=== PATIENT | female | born 2000 | race Caucasian/White ===

== ENCOUNTER 2020-11-24 10:35 | Outpatient (CLI) | payer SELFPAY ==
[2020-11-24 11:08] VITALS: BMI 32.8
[2020-11-24 11:10] VITALS: TEMP 36.8
[2020-11-24 11:14] VITALS: BP 141/98; PULSE 123
[2020-11-24 11:28] VITALS: BP 131/81; PULSE 146
[2020-11-24 11:41] LABS: Hematocrit 35.2 % (37-47); Hemoglobin 11.9 g/dL (12.0-15.0); Mean Corp Hgb Conc 33.8 g/dL (32-36); Mean Corpuscular Hgb 29.9 pg (27.0-32.0); Mean Corpuscular Volume 88.4 fL (81-99); Mean Platelet Vol. 10.6 fl (6.2-12.0); Platelet Count 262 K/mm3 (150-450); RBC Distribution Width SD 38.6 fl (35.1-43.9); Red Blood Count 3.98 M/mm3 (4.2-5.4); White Blood Count 9.7 K/mm3 (4.4-11.0)
[2020-11-24 11:43] VITALS: BP 136/90
[2020-11-24 11:56] LABS: AST(SGOT) 9 U/L (15-37); Alanine Aminotransfer ALT/SGPT 25 U/L (13-56); Creatinine, Serum 0.66 mg/dL (0.55-1.02); EST Glomerular Filtration Rate 119 mL/min (>60); Est Glom Filt Rate - Afr Amer 145 mL/min (>60); Estimated Creatinine Clearance 106.64 ml/min; Uric Acid 2.9 mg/dL (2.6-6.0)
[2020-11-24 11:58] VITALS: BP 131/89; PULSE 117
[2020-11-24 12:00] LABS: Protein:Creat Ratio 160 mg/g CRE (0-200)
--- NOTE | 2020-11-26 08:24 | OB.TRI.PN ---
Progress Notes Date of Service: 11/24/20 Progress Note: Patient presents for triage evaluation secondary to elevated BP. 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 Currently in town for a wedding. Had elevated BPs at home last week. Asymptomatic. BPs mild range to normal. PreE labs normal. FHT: Moderate variability reactive no decelerations category I tracing [place]: CContractions Assessment and plan: BPs mild range. Asymptomatic. PreE labs negative Reactive NST, reassuring maternal and status patient discharged to home to follow-up with her provider next week. Laboratory Studies: Laboratory Tests 11/24/20 11/24/20 11/24/20 Range/Units 11:30 11:30 11:30 WBC 9.7 (4.4-11.0) K/mm3 RBC 3.98 L (4.2-5.4) M/mm3 Hgb 11.9 L (12.0-15.0) g/dL Hct 35.2 L (37-47) % MCV 88.4 (81-99) fL MCH 29.9 (27.0-32.0) pg MCHC 33.8 (32-36) g/dL RDW Std Deviation 38.6 (35.1-43.9) fl RDW Coeff of Ryann 12.0 (11.6-14.6) % Plt Count 262 (150-450) K/mm3 MPV 10.6 (6.2-12.0) fl Creatinine 0.66 (0.55-1.02) mg/dL Estim Creat Clear Calc 106.64 ml/min Est GFR (MDRD) Af Amer 145 (>60) mL/min Est GFR (MDRD) Non-Af 119 (>60) mL/min Uric Acid 2.9 (2.6-6.0) mg/dL AST 9 L (15-37) U/L ALT 25 (13-56) U/L U Random Total Protein 6.0 (<11.9) mg/dL Urine Creatinine 37.50 (NO RANGE EST.) mg/dL Protein/Creatinin Ratio 160 (0-200) mg/g CRE Multi Select Codes - Urinary/Genital Urinary/Genital CPT Codes: 34299-12 non-stress test Interp
== END 2020-11-24 12:05 | disposition home or self-care (01) ==
LOC: WPOUT 11:00 → WP 11:01
PROVIDERS: Referring Provider Obstetrics & Gynecology; Visit Provider Obstetrics & Gynecology
DX: O26.899 Other specified pregnancy related conditions, unspecified trimester (principal); R03.0 Elevated blood-pressure reading, without diagnosis of hypertension; Z3A.00 Weeks of gestation of pregnancy not specified
CPT/HCPCS: 36415; 59025; 59050; 82565; 82570; 84156; 84450; 84460; 84550; 85027; 99218; G0378